=== PATIENT | male | born 1960 | race Caucasian/White ===

== ENCOUNTER → 2017-03-03 | Day surgery (SDC) | payer OTHER ==
[~2017-03-03] MED LIST: IV RINGERS,LACTATED 1000ML 1,000 ML IV SCH; LIDOCAINE 2% PF Vial for OR 5 ML VIAL. ONE; LISI10TA2 PO; PIOG15TA42 PO; PROPOFOL 20 ML IV ONE; SERT100T PO; SIMV20TA3 PO; THIO10TA PO
--- NOTE | 2017-03-03 11:54 | PDOC1 ---
History and Physical Date of Admission Date of Admission DATE: 03/03/17 TIME: 11:46 Source Source: Chart review, Patient History of Present Illness History of Present Illness 56 y/o male referred for CRC screening; no prior. No diarrhea, constipation or melena. Occasional blood in stool. Wt/appetite stable. No nausea or vomiting. No UGI complaints. No GB, liver or pancreatic history. No GI family history of note. Past Medical History Cardiovascular: CAD (with PCI), HTN, Hyperlipidemia Psych: Depression Endocrine: Diabetes Past Surgical History Past Surgical History: Other (PCI/stent) Family History Family History: Cancer (breast and ovary/mother), Diabetes, Heart Disease, Hypertension, Stroke Social History Smoke: No ALCOHOL: none Drugs: None Current Medications Current Medications Current Medications Ringer's Solution 1,000 ml @ 50 mls/hr Q20H IV Last administered on 03/03/17t 11:38; Start 03/03/17 at 06:00; Stop 03/04/17 at 05:59 Active Scripts Active Reported Simvastatin 20 Mg Tablet 1 Tab PO QHS Zoloft (Sertraline Hcl) 100 Mg Tablet 1 Tab PO DAILY Lisinopril 10 Mg Tablet 1 Tab PO DAILY Thioridazine Hcl 10 Mg Tablet 10 Mg PO DAILY Actos (Pioglitazone Hcl) 15 Mg Tablet 1 Tab PO DAILY Allergies Allergies: Coded Allergies: codeine (Verified Allergy, Intermediate, Nausea and Vomiting, 03/03/17) trifluoperazine (Verified Allergy, Intermediate, Unknown, 03/03/17) ROS Review of System 10-point review otherwise negative. Physical Exam General: Alert, Oriented X3, Cooperative, No acute distress, Other (obese) Lungs: Clear to auscultation Heart: S1S2, RRR, no gallops, no murmurs Abdomen: Normal bowel sounds, Soft, No tenderness, No hepatosplenomegaly, No masses, Other (3-4 cm umbilical hernia defect) Rectal Exam: deferred (to procedure) Extremities: No cyanosis, No edema Skin: No significant lesion Neuro: Normal speech, Strength at 5/5 X4 ext, Normal tone, Sensation intact, Cranial nerves 3-12 NL, Reflexes 2+ Psych/Mental Status: Mental status NL, Mood NL Vitals Vitals Vital Signs Date Time Temp Pulse Resp B/P (MAP) Pulse Ox O2 Delivery O2 Flow Rate FiO2 03/03/17 11:15 98.2 87 18 97 98.2 VTE Prophylaxis Ordered VTE Prophylaxis Devices: No VTE Pharmacological Prophylaxi: No Assessment/Plan Assessment/Plan IMP: 1. Probably at average risk for CRC. Plan: colonoscopy. CHANCE ONEIL MD Mar 03, 2017 11:54
--- NOTE | 2017-03-03 12:39 | PDOC4 ---
PROCEDURE Procedure Colon/biopsy Indication: screen,average risk/no prior Med: per anesthesia. Findings: BRANDAN normal. 3-4mm polyp cecum, biopsied off. TINY internal hemorrhoids. Sparkle well. Await path. F/u office 2 weeks. Resume home meds, diet. Repeat exam pending path. CHANCE ONEIL MD Mar 03, 2017 12:39
[2017-03-03 13:02] VITALS: BP 146/70
--- NOTE | 2017-03-04 11:06 | PATHOLOGY ---
PATHOLOGY REPORT * * * * * * * * FINAL DIAGNOSIS: Colonic mucosa "cecum polyp biopsy": - Tubular adenoma. - There is no evidence of high-grade dysplasia or malignancy. REPORT ELECTRONICALLY SIGNED BY: Richard Dasilva M.D. DATE/TIME: 03/04/2017 11:05 * * * * * * * * GROSS PATHOLOGY: Received in formalin labeled "Ronda Uriostegui, cecum polyp," is a segment of nicole soft tissue measuring 0.3 cm in maximum dimension. The specimen is submitted entirely in cassette A1. ([facility]; 03/03/17) INITIAL CPT CODE(S): A; 92333 Professional services performed [place] [facility] [address] Technical services performed by [facility] at [address] [place] [address], [facility] [address] [place] [address]. SPECIMEN(S) RECEIVED: A.Cecum polyp biopsy CLINICAL HISTORY: Screen-bleeding PATIENT: RONDA URIOSTEGUI /AGE: 704/13/1960 (Age: 56) PATIENT #: [id number] ALT CASE #: SPECIMEN COLLECTION DATE: 03/03/2017 SPECIMEN RECEIVED DATE: 03/03/2017 [facility] - [address] [place] [address] - PHONE: [phone] * * * END OF REPORT * * *
== END | disposition home or self-care (01) ==
LOC: ENDOS 10:30
PROVIDERS: ATTEND Internal Medicine Gastroenterology
DX: Z12.11 Encounter for screening for malignant neoplasm of colon (principal); D12.0 Benign neoplasm of cecum; K64.8 Other hemorrhoids; E78.00 Pure hypercholesterolemia, unspecified; I10 Essential (primary) hypertension; M19.90 Unspecified osteoarthritis, unspecified site; E11.9 Type 2 diabetes mellitus without complications; F32.9 Major depressive disorder, single episode, unspecified; Z87.39 Personal history of other diseases of the musculoskeletal system and connective tissue; Z86.39 Personal history of other endocrine, nutritional and metabolic disease; Z88.6 Allergy status to analgesic agent; Z88.8 Allergy status to other drugs, medicaments and biological substances
CPT/HCPCS: 45380; 88305; J2704

== ENCOUNTER 2021-04-07 07:09 | Emergency (ER) | payer OTHER, MEDICAID ==
[~2021-04-07] VITALS: Ht 175.3 cm; Wt 174.9 kg
[~2021-04-07 07:09] MED LIST changes: -IV RINGERS,LACTATED 1000ML 1,000 ML IV SCH; -LIDOCAINE 2% PF Vial for OR 5 ML VIAL. ONE; +LISI10TA16 PO; -LISI10TA2 PO; -PROPOFOL 20 ML IV ONE; +SIMV20TA18 PO; -SIMV20TA3 PO
[2021-04-07] MEDS ORDERED: IV NORMAL SALINE 1000ML BAG 1,000 ML IV ONE (07:45)
[2021-04-07 07:55] LABS: BASO # 0.1 x10^3/uL (0.0-0.2); BASO % 1 % (0-3); EOS % 0 % (0-3); HEMATOCRIT 31.9 % (39.0-53.0); HEMOGLOBIN 10.6 g/dL (13.0-17.5); LYMPH % 5 % (24-48); MEAN CORPUSCULAR HEMOGLOBIN 31 pg (25-35); MEAN CORPUSCULAR HGB CONC 33 g/dL (31-37); MEAN CORPUSCULAR VOLUME 92 fL (79-100); MONO # 0.5 x10^3/uL (0.0-1.1); MONO % 2 % (0-9); NEUT # 19.7 x10^3/uL (1.8-7.7); NEUT % 92 % (31-73); PLATELET COUNT 442 x10^3/uL (140-400); RED BLOOD COUNT 3.47 x10^6/uL (4.30-5.70); RED CELL DISTRIBUTION WIDTH 14.1 % (11.5-14.5); WHITE BLOOD COUNT 21.3 x10^3/uL (4.0-11.0)
[2021-04-07 08:05] LABS: CALCIUM 8.4 mg/dL (8.5-10.1); CREATININE 1.6 mg/dL (0.7-1.3); GFR 44.3; POTASSIUM 5.2 mmol/L (3.5-5.1)
[2021-04-07 08:11] LABS: TOTAL BILIRUBIN 0.6 mg/dL (0.2-1.0); TOTAL PROTEIN 5.9 g/dL (6.4-8.2)
[2021-04-07] MEDS ORDERED: TRANEXAMIC ACID 1,000 MG/10 ML VIAL. TOP ONE (08:15)
[2021-04-07 08:31] LABS: % BANDS 3 % (0-9); % EOS 1 % (0-5); % LYMPHS 9 % (24-48); % MONOS 3 % (0-10); % SEGS 84 % (35-66); PLT ESTIMATE INCREASED (ADEQUATE)
--- NOTE | 2021-04-07 09:12 | RAD ---
CT scan abdomen and pelvis without contrast 04/07/2021 CLINICAL HISTORY: Elevated white blood count. Bleeding from gluteal wound. TECHNIQUE: Unenhanced, contiguous, 2.5 mm axial sections were obtained through the abdomen and pelvis . One or more of the following individualized dose reduction techniques were utilized for this study: 1. Automated exposure control. 2. Adjustment of the mA and/or kV according to patient size. 3. Use of iterative reconstruction technique. FINDINGS: Comparison a study is dated 10/21/2019. Images through the lung bases demonstrate mild cardiomegaly. Minimal dependent subsegmental atelectas is seen bilaterally. The liver parenchyma is decreased attenuation consistent with fatty infiltration. The spleen, pancrea s, and adrenal glands are within normal limits. No renal or ureteral calculus is seen. The abdominal aorta tapers normally. The gallbladder is contracted. No free fluid or free air is seen within the abdomen. A large ventral hernia is seen which contains nondilated small bowel loops. This measures approximately 21 cm in transverse diameter. Images through the pelvis demonstrate the urinary bladder to be contracted. Calcifications are seen w ithin the pelvis consistent with phleboliths. No free fluid is seen. A moderate amount stool is seen involving the sigmoid colon and rectum. No free fluid is noted. By history the patient has a gluteal wound which does not have a definite CT correlate. No abnormal fluid collection is seen to suggest ev idence of an abscess. No hematoma or abnormal soft tissue mass is seen. Very mild S-shaped curvature of the thoracolumbar spine is seen. Degenerative changes are seen involving the lower thoracic and th roughout the lumbar spine along with both hips. IMPRESSION: No acute abnormality is seen. Electronically signed by: Atul Julien MD (04/07/2021 9:10 AM) [id number]
[2021-04-07 10:57] LABS: BACTERIA,URINE MOD /HPF (0-FEW); BILIRUBIN,URINE SMALL (NEG); CLARITY,URINE CLEAR; COLOR,URINE YELLOW; NITRITE,URINE NEGATIVE (NEG); PH,URINE 5.5 (<5.0-8.0); PROTEIN,URINE 100 mg/dL (NEG-TRACE); RBC,URINE 0 /HPF (0-2); UROBILINOGEN,URINE 0.2 mg/dL (0.2 mg/dL); WBC,URINE >40 /HPF (0-4)
[2021-04-07 10:58] LABS: HYALINE CASTS, URINE MODERATE /HPF
[2021-04-07] MEDS ORDERED: CEPH500T PO (11:48)
--- NOTE | 2021-04-07 11:48 | ED.ADGEN ---
Past Medical History Past Medical History: High Cholesterol, Heart Disease, RI, Other Additional Past Medical Histor: autism with anger issues Past Surgical History: No Surgical History Additional Past Surgical Histo: cardiac stent Smoking Status: Never Smoker Alcohol Use: None General Adult EDM: Chief Complaint: OTHER COMPLAINTS HPI: HPI: Patient is a 60 year old [f__sex] who presents with [] Review of Systems: Review of Systems: Complete ROS is negative unless otherwise documented in HPI Current Medications: Current Medications Medications (Trade) Dose Ordered Sig/Dameon Start Time Stop Time Status Last Admin Dose Admin Sodium Chloride 1,000 ml @ 1,000 mls/hr 1X ONCE 04/07/21 07:45 04/07/21 08:44 DC 04/07/21 07:47 1,000 MLS/HR Tranexamic Acid (Cyklokapron) 1,000 mg 1X ONCE 04/07/21 08:15 04/07/21 08:16 DC 04/07/21 09:39 1,000 MG Allergies: Allergies: Allergies Coded Allergies Type Severity Reaction Last Updated Verified codeine Allergy Intermediate Nausea and Vomiting 03/03/17 Yes trifluoperazine Allergy Intermediate Unknown 03/03/17 Yes Physical Exam: PE: General: Awake, alert, NAD. Well Nourished, well hydrated. Cooperative HEENT: Atraumatic, EOMI, PERRL, airway patent, moist oral mucosa Neck: Supple, trachea midline Respiratory: CTA bilaterally, normal effort, no wheezing/crackles CV: RRR, no murmur, cap refill <2 GI: Soft, nondistended, nontender, no masses MSK: No obvious deformities Skin: Warm, dry. Buttocks: Multiple varicose veins noted. Right buttock has varicose vein with ulceration and oozing of blood Neuro: A&O x3, speech NL, sensory and motor grossly intact, no focal deficits Psych: Normal affect, normal mood, not suicidal or homicidal Current Patient Data: Labs: Laboratory Tests Test 04/07/21 07:37 04/07/21 10:00 White Blood Count 21.3 x10^3/uL (4.0-11.0) H Red Blood Count 3.47 x10^6/uL (4.30-5.70) L Hemoglobin 10.6 g/dL (13.0-17.5) L Hematocrit 31.9 % (39.0-53.0) L Mean Corpuscular Volume 92 fL (79-100) Mean Corpuscular Hemoglobin 31 pg (25-35) Mean Corpuscular Hemoglobin Concent 33 g/dL (31-37) Red Cell Distribution Width 14.1 % (11.5-14.5) Platelet Count 442 x10^3/uL (140-400) H Neutrophils (%) (Auto) 92 % (31-73) H Lymphocytes (%) (Auto) 5 % (24-48) L Monocytes (%) (Auto) 2 % (0-9) Eosinophils (%) (Auto) 0 % (0-3) Basophils (%) (Auto) 1 % (0-3) Neutrophils # (Auto) 19.7 x10^3/uL (1.8-7.7) H Lymphocytes # (Auto) 1.0 x10^3/uL (1.0-4.8) Monocytes # (Auto) 0.5 x10^3/uL (0.0-1.1) Eosinophils # (Auto) 0.0 x10^3/uL (0.0-0.7) Basophils # (Auto) 0.1 x10^3/uL (0.0-0.2) Segmented Neutrophils % 84 % (35-66) H Band Neutrophils % 3 % (0-9) Lymphocytes % 9 % (24-48) L Monocytes % 3 % (0-10) Eosinophils % 1 % (0-5) Platelet Estimate Increased (ADEQUATE) Sodium Level 132 mmol/L (136-145) L Potassium Level 5.2 mmol/L (3.5-5.1) H Chloride Level 98 mmol/L (98-107) Carbon Dioxide Level 21 mmol/L (21-32) Anion Gap 13 (6-14) Blood Urea Nitrogen 24 mg/dL (8-26) Creatinine 1.6 mg/dL (0.7-1.3) H Estimated GFR (Cockcroft-Gault) 44.3 BUN/Creatinine Ratio 15 (6-20) Glucose Level 414 mg/dL (70-99) H Calcium Level 8.4 mg/dL (8.5-10.1) L Total Bilirubin 0.6 mg/dL (0.2-1.0) Aspartate Amino Transferase (AST) 16 U/L (15-37) Alanine Aminotransferase (ALT) 34 U/L (16-63) Alkaline Phosphatase 126 U/L (46-116) H Total Protein 5.9 g/dL (6.4-8.2) L Albumin 3.0 g/dL (3.4-5.0) L Albumin/Globulin Ratio 1.0 (1.0-1.7) Urine Collection Type Void Urine Color Yellow Urine Clarity Clear Urine pH 5.5 (<5.0-8.0) Urine Specific [place] 1.025 (1.000-1.030) Urine Protein 100 mg/dL (NEG-TRACE) Urine Glucose (UA) Negative mg/dL (NEG) Urine Ketones (Stick) Trace mg/dL (NEG) Urine Blood Trace (NEG) Urine Nitrite Negative (NEG) Urine Bilirubin Small (NEG) Urine Urobilinogen Dipstick 0.2 mg/dL (0.2 mg/dL) Urine Leukocyte Esterase Moderate (NEG) Urine RBC 0 /HPF (0-2) Urine WBC >40 /HPF (0-4) Urine Squamous Epithelial Cells Few /LPF Urine Bacteria Mod /HPF (0-FEW) Urine Hyaline Casts Moderate /HPF Urine Mucus Mod /LPF Laboratory Tests 04/07/21 07:37 Laboratory Tests 04/07/21 07:37 Vital Signs: Vital Signs Date Time Temp Pulse Resp B/P (MAP) Pulse Ox O2 Delivery O2 Flow Rate FiO2 04/07/21 12:18 73 20 114/53 (73) 98 Room Air 04/07/21 07:10 97.9 97.9 EKG: EKG: [] Heart Score: C/O Chest Pain: N/A Risk Factors: Risk Factors: DM, Current or recent (<one month) smoker, HTN, HLP, family h istory of CAD, obesity. Risk Scores: Score 0 - 3: 2.5% MACE over next 6 weeks - Discharge Home Score 4 - 6: 20.3% MACE over next 6 weeks - Admit for Clinical Observation Score 7 - 10: 72.7% MACE over next 6 weeks - Early Invasive Strategies Radiology/Procedures: Radiology/Procedures: [] Course & Med Decision Making: Course & Med Decision Making Pertinent Labs and Imaging studies reviewed. (See chart for details) [] Dragon Disclaimer: Dragon Disclaimer: This electronic medical record was generated, in whole or in part, using a voice recognition dictation system. Departure Departure Impression: Primary Impression: Bleeding from varicose vein Additional Impression: UTI (urinary tract infection) Disposition: HOME / SELF CARE / HOMELESS Condition: STABLE Referrals: KARI HUTCHISON MD (PCP) Patient Instructions: Bleeding Varicose Veins, Urinary Tract Infection Scripts Cephalexin (CEPHALEXIN) 500 Mg Tablet 1 TAB PO BID for 7 Days, #14 TAB Prov: SAMREEN KEMP MD 04/07/21 Problem Qualifiers SAMREEN KEMP MD Apr 07, 2021 11:48
[2021-04-07 12:18] VITALS: BP 114/53
== END 2021-04-07 12:29 | disposition home or self-care (01) ==
LOC: ER 07:09
DX: I83.891 Varicose veins of right lower extremity with other complications (principal); N39.0 Urinary tract infection, site not specified; E78.00 Pure hypercholesterolemia, unspecified; I25.2 Old myocardial infarction; Z86.79 Personal history of other diseases of the circulatory system; Z95.5 Presence of coronary angioplasty implant and graft; Z88.5 Allergy status to narcotic agent; Z88.8 Allergy status to other drugs, medicaments and biological substances
CPT/HCPCS: 36415; 74176; 80053; 81001; 85007; 85025; 96360; 99285; J3490; J7030

== ENCOUNTER → 2022-01-29 | Outpatient (CLI) | payer OTHER, MEDICAID ==
[2021-10-25 11:00] VITALS: BP 145/63
[~2022-01-29] MED LIST changes: +AMOX1TAB58 PO; +CARV12.511 PO; +CEPH500T PO; +CLOP75TA PO; +GLIM2TAB PO; +LEVO100T5 PO
--- NOTE | 2022-01-29 16:44 | RAD ---
Exam: XR LT HIP (WITH OR WITHOUT PELVIS) 2 VIEWS History: Hamstring muscle strain, hip pain. Comparison: CT abdomen pelvis 10/12/2021 Findings: Osseous mineralization is normal. No acute fracture or dislocation. Mild degenerative changes of the left femoral acetabular joint. The pubic rami are intact. Sacroiliac joints are unremarkable. Soft ti ssues are within normal limits. Impression: 1. Mild degenerative changes the left hip without acute osseous abnormality. Electronically signed by: Benjamin Maradiaga MD (01/29/2022 4:41 PM) [id number]
== END ==
LOC: RAD 11:00
PROVIDERS: ATTEND Family Medicine
DX: S76.312A Strain of muscle, fascia and tendon of the posterior muscle group at thigh level, left thigh, initial encounter (principal); M16.12 Unilateral primary osteoarthritis, left hip; I25.5 Ischemic cardiomyopathy; X58.XXXA Exposure to other specified factors, initial encounter; Y93.89 Activity, other specified; Y92.89 Other specified places as the place of occurrence of the external cause; Y99.8 Other external cause status
CPT/HCPCS: 73502